=== PATIENT | female | born 1965 | race Caucasian/White ===

== ENCOUNTER 2019-06-20 20:02 | Emergency (ER) | payer SELFPAY ==
[~2019-06-20] VITALS: Ht 160 cm; Wt 87.2 kg
[~2019-06-20 20:02] MED LIST: ASP81TEC PO; CIPR250S2 PO; CYMBALTA PO; DIET25TA57 PO; DIETHYLPROPION; DULO60CA6 PO; METO25TA2 PO; METOPROLOL; OMEP20TA2 PO; PRILOSEC PO; metoprolol PO
[2019-06-20 20:47] LABS: BASOPHILS % (AUTO) 0 % (0-10); EOSINOPHILS % (AUTO) 0 % (0-10); HEMATOCRIT 42 % (35-52); HEMOGLOBIN 14.2 G/DL (11.5-16.0); LYMPHOCYTES # (AUTO) 1.4 X 10^3 (1.0-4.0); LYMPHOCYTES % (AUTO) 16 % (12-44); MEAN CORPUSCULAR HEMOGLOBIN 29 PG (25-34); MEAN CORPUSCULAR HGB CONC 34 G/DL (32-36); MEAN CORPUSCULAR VOLUME 87 FL (80-99); MEAN PLATELET VOLUME 10.2 FL (7.4-10.4); MONOCYTES # (AUTO) 0.3 X 10^3 (0.0-1.0); MONOCYTES % (AUTO) 4 % (0-12); NEUTROPHILS # (AUTO) 7.4 X 10^3 (1.8-7.8); NEUTROPHILS % (AUTO) 80 % (42-75); PLATELET COUNT 254 10^3/uL (130-400); RED CELL DISTRIBUTION WIDTH 13.8 % (10.0-14.5); WHITE BLOOD COUNT 9.3 10^3/uL (4.3-11.0)
[2019-06-20 20:52] LABS: BILIRUBIN,URINE NEGATIVE (NEGATIVE); CLARITY,URINE CLEAR; COLOR,URINE YELLOW; GLUCOSE, URINE (UA) NEGATIVE (NEGATIVE); KETONES,URINE NEGATIVE (NEGATIVE); LEUKOCYTE ESTERASE ,URINE NEGATIVE (NEGATIVE); NITRITE,URINE NEGATIVE (NEGATIVE); PROTEIN,URINE 2+ (NEGATIVE)
[2019-06-20] MEDS ORDERED: LACTATED RINGERS 1,000 ML IV ONE (20:52)
[2019-06-20] MEDS ORDERED: KETOROLAC 30 MG/ML VIAL IVP STA (20:52)
[2019-06-20] MEDS ORDERED: ONDANSETRON 4 MG/2 ML (SDV) Z0FRAN IVP ONE (21:00)
[2019-06-20 21:04] LABS: ALANINE AMINOTRANSFERASE 38 U/L (0-55); ALBUMIN 3.8 GM/DL (3.2-4.5); ALKALINE PHOSPHATASE 67 U/L (40-136); BILIRUBIN,TOTAL 0.6 MG/DL (0.1-1.0); BUN/CREATININE RATIO 15; CALCIUM 8.5 MG/DL (8.5-10.1); CARBON DIOXIDE 24 MMOL/L (21-32); CHLORIDE 107 MMOL/L (98-107); CREATININE SERUM 0.86 MG/DL (0.60-1.30); GFR ESTIMATED > 60; GLUCOSE 144 MG/DL (70-105); POTASSIUM 3.6 MMOL/L (3.6-5.0); SODIUM 143 MMOL/L (135-145); TOTAL PROTEIN 6.9 GM/DL (6.4-8.2)
[2019-06-20 21:11] LABS: BACTERIA,URINE FEW /HPF
--- NOTE | 2019-06-20 21:48 | Diagnostic Imaging Report ---
PROCEDURE: CT urinary tract, rule out kidney stone. TECHNIQUE: Multiple contiguous axial images were obtained through the abdomen and pelvis without the use of intravenous contrast. Auto Exposure Controls were utilized during the CT exam to meet ALARA standards for radiation dose reduction. INDICATION: Pain in the right flank. Vomiting. COMPARISON: None. FINDINGS: The lung bases are clear. The heart is normal in size. There is a small hiatal hernia. The liver demonstrates no focal lesion. The spleen appears normal. A small splenule is noted. The pancreas appears normal. The adrenal glands appear normal. There is severe right hydronephrosis. There is no significant hydroureter seen distally. There is moderate edema about the renal pelvis. There is a nonobstructing punctate calculus in the right kidney. The left kidney appears normal. Phleboliths are seen in the pelvis and the bladder is decompressed. The bowel loops are nondistended without evidence of obstruction. The structure is believed to represent the appendix. It appears prominent, measuring 11 mm in thickness; however, there is not significant surrounding edema. No free fluid or free air is seen. No acute osseous abnormality is seen. IMPRESSION: 1. Severe right hydronephrosis. An obstructing calculus is not seen, concerning for UPJ obstruction. There is surrounding perirenal edema. 2. Nonobstructing punctate calculus seen in the right kidney. 3. Prominent appendix. This is thought to be due to variant anatomy as there are no other findings of appendicitis, however, please correlate with clinical findings. 4. Small hiatal hernia. Dictated by: Dictated on workstation # [id number]
--- NOTE | 2019-06-20 21:54 | ED Abdominal Pain ---
General Chief Complaint: Abdominal/GI Problems Stated Complaint: R ABD PAIN,V/N Nursing Triage Note: patient c/o pain believes inher right kidney. states she was required to drink 40 ounces of water for a test she had done today and since then has had pain and nausea with 4 episodes of vomiting. Sepsis Screen: No Definite Risk Source of Information: Patient History of Present Illness Date Seen by Provider: June 20, 2019 Time Seen by Provider: 20:35 Initial Comments PT ARRIVES VIA POV FROM HOME C/O SEVERE PAIN IN RUQ AND RIGHT FLANK PAIN BEGAN AROUND 1500 WHILE LAYING IN BED C/O NAUSEA AND VOMITED X 4 DUE TO PAIN. NO DIARRHEA NO FEVER/SWEATS/CHILLS NO PROBLEMS URINATING NO CHEST PAIN NO SHORTNESS OF BREATH NO PALPITATIONS NO DIZZINESS OR SYNCOPE STATES SHE THINKS IT IS HER KIDNEY STATES SHE WAS TOLD SEVERAL YEARS AGO THAT HER RIGHT KIDNEY "DOESN'T EMPTY" AND WAS REFERRED TO UROLOGIST BUT NEVER FOLLOWED UP STATES TODAY SHE HAD A "PRE DRUG SCREENING" AND HAD TO DRINK 40 OZ OF WATER TO PRODUCE A URINE SPECIMEN AT [facility]. STATES SHE BELIEVES DRINKING ALL THAT WATER CAUSED THIS PROBLEM, SHE HAS HAD THE SAME THING HAPPEN IF SHE DRINKS TOO MUCH WATER AT ONCE. BUT HAS NOT BEEN THIS BAD BEFORE STATES SHE HAS NEVER BEEN DIAGNOSED WITH KIDNEY STONES AND HAS ONLY HAD 1 UTI. TOOK 1/2 OF AN OXYCODONE THIS AFTERNOON, BUT IT DID NOT HELP, AND THEN LATER SHE VOMITED IT UP. NO KNOWN SICK CONTACTS OR KNOWN EXPOSURE TO COVID-19, BUT PT HAS BEEN TO THE STORE MULTIPLE TIMES AND VISITED FRIENDS SEVERAL TIMES DURING THE LAST SEVERAL WEEKS, WHILE COUNTRY AND STATE HAVE BEEN UNDER MANDATED STAY AT HOME ORDERS PCP: DR. MATOS Allergies and Home Medications Allergies Coded Allergies: No Known Drug Allergies (Unverified , 07/09/10) Home Medications Aspirin 81 Mg Tabec, 81 MG PO DAILY, (Reported) Ciprofloxacin 250 Mg/5 Ml [facility]..rec, 250 MG PO BID, (Reported) take until gone Duloxetine Hcl 60 Mg Capsule., 60 MG PO HS, (Reported) Hydrocodone/Ibuprofen 1 Each Tablet, 1-2 TAB PO Q4H PRN for PAIN-MODERATE Prescribed by: MARCELLUS MERIDA on 06/20/192226 Metoprolol Tartrate 25 Mg Tablet, 25 MG PO BID, (Reported) Nitrofurantoin Monohyd/M-Cryst 100 Mg Capsule, 1 TAB PO BID Prescribed by: MARCELLUS MERIDA on 06/20/192226 Omeprazole 20 Mg Tablet.dr, 20 MG PO BID, (Reported) Ondansetron 4 Mg Tab.rapdis, 4 MG PO Q4H Prescribed by: MARCELLUS MERIDA on 06/20/192226 Tamsulosin HCl 0.4 Mg Cap, 0.4 MG PO DAILY Prescribed by: MARCELLUS MERIDA on 06/20/192226 Patient Home Medication List Home Medication List Reviewed: Yes Review of Systems Review of Systems Constitutional: no symptoms reported; No chills, No diaphoresis, No dizziness, No fever EENTM: No Symptoms Reported Respiratory: No Symptoms Reported; Denies Cough, Denies Shortness of Air Cardiovascular: No Symptoms Reported; Denies Chest Pain, Denies Edema, Denies Lightheadedness Gastrointestinal: See HPI, Abdominal Pain; Denies Constipated, Denies Diarrhea; Nausea, Vomiting Genitourinary: Denies Burning, Denies Discharge, Denies Frequency; Flank Pain; Denies Hematuria, Denies Incontinence, Denies Pain, Denies Urgency Musculoskeletal: see HPI, back pain Skin: no symptoms reported Psychiatric/Neurological: No Symptoms Reported Endocrine: No Symptoms Reported Hematologic/Lymphatic: No Symptoms Reported Past Bvthyav-Xhylrx-Sgxjtx Hx Past Med/Social Hx: Reviewed and Corrections made Patient Social History Alcohol Use: Denies Use Recreational Drug Use: No Smoking Status: Current Everyday Smoker (1/2 PPD AND CHEWS "POUCHES" ) Type Used: Cigarettes, Smokeless Tobacco Recent Foreign Travel: No Contact w/Someone Who Travel: No Recent Infectious Disease Expo: No Past Medical History Surgeries: Yes ( ; LEFT KNEE PATELLA FRACTURE REPAIR; RIGHT CARPAL TUNNEL) Section, Orthopedic Respiratory: No Cardiac: No Neurological: Yes Headaches /Migraines Reproductive Disorders: No [employer] History: Menopausal Genitourinary: Yes ("RIGHT KIDNEY DOESN'T DRAIN";R INTRARENAL STONE NOTED ON CT-NEVER PASSED AN) Kidney Stones Gastrointestinal: Yes Gastroesophageal Reflux Musculoskeletal: No Endocrine: No HEENT: No Cancer: No Psychosocial: Yes Depression Integumentary: No Blood Disorders: No Physical Exam Vital Signs Vital Signs - First Documented 06/20/19 20:22 Temp 36.1 Pulse 50 Resp 18 B/P (MAP) 152/79 (103) Pulse Ox 97 O2 Delivery Room Air Capillary Refill : Less Than 3 Seconds Height/Weight/BMI Height: '" Weight: lbs. oz. kg; 34.00 BMI Method: General Appearance: WD/WN, no apparent distress (BUT LOOKS UNCOMFORTABLE HOLDING RIGHT MID ABDOMEN AND FLANK AREA. ) Neck: normal inspection Respiratory: normal breath sounds, no respiratory distress, no accessory muscle use Cardiovascular: regular rate, rhythm, no murmur Gastrointestinal: normal bowel sounds, soft, no organomegaly, no pulsatile mass; No distended, No rebound; tenderness (RIGHT MID AND UPPER ABDOMEN AND RIGHT FLANK WITH SIGNIFICANT TENDERNESS. ); No hernia, No mass Extremities: normal inspection, no pedal edema, normal capillary refill Back: no vertebral tenderness, CVA tenderness (R) Neurologic/Psychiatric: car unloader II-XII nml as tested, no motor/sensory deficits, alert, normal mood/affect, oriented x 3 Skin: normal color, warm/dry; No rash Progress/Results/Core Measures Results/Orders Lab Results Laboratory Tests Test 06/20/19 20:33 06/20/19 20:45 Range/Units White Blood Count 9.3 4.3-11.0 10^3/uL Red Blood Count 4.87 4.35-5.85 10^6/uL Hemoglobin 14.2 11.5-16.0 G/DL Hematocrit 42 35-52 % Mean Corpuscular Volume 87 80-99 FL Mean Corpuscular Hemoglobin 29 25-34 PG Mean Corpuscular Hemoglobin Concent 34 32-36 G/DL Red Cell Distribution Width 13.8 10.0-14.5 % Platelet Count 254 130-400 10^3/uL Mean Platelet Volume 10.2 7.4-10.4 FL Neutrophils (%) (Auto) 80 H 42-75 % Lymphocytes (%) (Auto) 16 12-44 % Monocytes (%) (Auto) 4 0-12 % Eosinophils (%) (Auto) 0 0-10 % Basophils (%) (Auto) 0 0-10 % Neutrophils # (Auto) 7.4 1.8-7.8 X 10^3 Lymphocytes # (Auto) 1.4 1.0-4.0 X 10^3 Monocytes # (Auto) 0.3 0.0-1.0 X 10^3 Eosinophils # (Auto) 0.0 0.0-0.3 10^3/uL Basophils # (Auto) 0.0 0.0-0.1 10^3/uL Sodium Level 143 135-145 MMOL/L Potassium Level 3.6 3.6-5.0 MMOL/L Chloride Level 107 98-107 MMOL/L Carbon Dioxide Level 24 21-32 MMOL/L Anion Gap 12 5-14 MMOL/L Blood Urea Nitrogen 13 7-18 MG/DL Creatinine 0.86 0.60-1.30 MG/DL Estimat Glomerular Filtration Rate > 60 BUN/Creatinine Ratio 15 Glucose Level 144 H 70-105 MG/DL Calcium Level 8.5 8.5-10.1 MG/DL Corrected Calcium 8.7 8.5-10.1 MG/DL Total Bilirubin 0.6 0.1-1.0 MG/DL Aspartate Amino Transf (AST/SGOT) 32 5-34 U/L Alanine Aminotransferase (ALT/SGPT) 38 0-55 U/L Alkaline Phosphatase 67 40-136 U/L Total Protein 6.9 6.4-8.2 GM/DL Albumin 3.8 3.2-4.5 GM/DL Urine Color YELLOW Urine Clarity CLEAR Urine pH 5.0 5-9 Urine Specific [place] >=1.030 1.016-1.022 Urine Protein 2+ H NEGATIVE Urine Glucose (UA) NEGATIVE NEGATIVE Urine Ketones NEGATIVE NEGATIVE Urine Nitrite NEGATIVE NEGATIVE Urine Bilirubin NEGATIVE NEGATIVE Urine Urobilinogen 0.2 < = 1.0 MG/DL Urine Leukocyte Esterase NEGATIVE NEGATIVE Urine RBC (Auto) 1+ H NEGATIVE Urine RBC 5-10 H /HPF Urine WBC 5-10 H /HPF Urine Squamous Epithelial Cells 10-25 H /HPF Urine Crystals NONE /LPF Urine Bacteria FEW H /HPF Urine Casts NONE /LPF Urine Mucus NEGATIVE /LPF Urine Culture Indicated NO My Orders Orders - MARCELLUS MERIDA DO Ed Iv/Invasive Line Start (06/20/19 20:27) Cbc With Automated Diff (06/20/19 20:27) Comprehensive Metabolic Panel (06/20/19 20:27) Ua Culture If Indicated (06/20/19 20:27) Ct Abd/Pelvis Wo(Kidney Stone) (06/20/19 20:52) Acute Abd Series (06/20/19 20:52) Ed Iv/Invasive Line Start (06/20/19 20:52) Lactated Ringers (Lr 1000 Ml Iv Solution (06/20/19 20:52) Ketorolac Injection (Toradol Injection) (06/20/19 20:52) Ondansetron Injection (Zofran Injectio (06/20/19 21:00) Tamsulosin Capsule (Flomax Capsule) (06/21/19 18:00) Rx-Hydrocodone/Apap 5-325 Mg (Rx-Vicodin (06/20/19 22:30) Rx-Ondansetron Po (Rx-Zofran Po) (06/20/19 22:22) Rx-Nitrofurantoin [place] (Rx-Macrobid) (06/20/19 22:22) Tamsulosin Capsule (Flomax Capsule) (06/20/19 22:34) Medications Given in ED Current Medications Medications Dose Ordered Sig/Gila Route Start Time Stop Time Status Last Admin Dose Admin Acetaminophen/ Hydrocodone Bitart 1 ea Q4H PRN PO 06/20/19 22:30 06/20/19 22:55 DC 06/20/19 22:33 1 EA Lactated Ringer's 1,000 ml @ 0 mls/hr Q0M ONCE IV 06/20/19 20:52 06/20/19 20:54 DC 06/20/19 21:09 1,000 MLS/HR Ondansetron HCl 4 mg ONCE ONCE IVP 06/20/19 21:00 06/20/19 21:01 DC 06/20/19 21:09 4 MG Vital Signs/I&O 06/20/19 06/20/19 20:22 22:53 Temp 36.1 Pulse 50 53 Resp 18 14 B/P (MAP) 152/79 (103) 120/64 Pulse Ox 97 98 O2 Delivery Room Air Room Air Blood Pressure Mean: 103 Progress Progress Note : Progress Note GIVEN TORADOL AND ZOFRAN WITH SIGNIFICANT IMPROVEMENT OF SYMPTOMS Diagnostic Imaging Comments CT ABDOMEN/PELVIS--PER RADIOLOGIST REPORT AT 2153 FINDINGS: The lung bases are clear. The heart is normal in size. There is a small hiatal hernia. The liver demonstrates no focal lesion. The spleen appears normal. A small splenule is noted. The pancreas appears normal. The adrenal glands appear normal. There is severe right hydronephrosis. There is no significant hydroureter seen distally. There is moderate edema about the renal pelvis. There is a nonobstructing punctate calculus in the right kidney. The left kidney appears normal. Phleboliths are seen in the pelvis and the bladder is decompressed. The bowel loops are nondistended without evidence of obstruction. The structure is believed to represent the appendix. It appears prominent, measuring 11 mm in thickness; however, there is not significant surrounding edema. No free fluid or free air is seen. No acute osseous abnormality is seen. IMPRESSION: 1. Severe right hydronephrosis. An obstructing calculus is not seen, concerning for UPJ obstruction. There is surrounding perirenal edema. 2. Nonobstructing punctate calculus seen in the right kidney. 3. Prominent appendix. This is thought to be due to variant anatomy as there are no other findings of appendicitis, however, please correlate with clinical findings. 4. Small hiatal hernia. Reviewed: Reviewed by Me Departure Impression Primary Impression: Obstruction of right ureteropelvic junction (UPJ) Additional Impression: UTI (urinary tract infection) Disposition: 01 HOME, SELF-CARE Condition: Improved Departure-Patient Inst. Referrals: MICHOACANO MATOS MD (PCP/Family) Primary Care Physician TIANNA MILLAN MD Patient Instructions: Urinary Tract Infection, Adult (DC), Urinary Obstruction (DC) Add. Discharge Instructions: LOTS OF CLEAR LIQUIDS FOLLOW UP WITH DR. MILLAN OR UROLOGIST OF CHOICE THIS WEEK FOR FURTHER CARE All discharge instructions reviewed with patient and/or family. Voiced understanding. Scripts Hydrocodone/Ibuprofen (Hydrocodone-Ibuprofen 7.5-200) 1 Each Tablet 1-2 TAB PO Q4H PRN for PAIN-MODERATE MDD 6 TABS for 7 Days, #20 TAB Prov: MAGNOLIA,MARCELLUS K DO 06/20/19 Tamsulosin HCl (Flomax) 0.4 Mg Cap 0.4 MG PO DAILY, #10 CAP Prov: MAGNOLIA,MARCELLUS K DO 06/20/19 Ondansetron (Ondansetron Odt) 4 Mg Tab.rapdis 4 MG PO Q4H for Nausea/Vomiting, #10 TAB Prov: MAGNOLIA,MARCELLUS K DO 06/20/19 Nitrofurantoin Monohyd/M-Cryst (Macrobid 100 mg Capsule) 100 Mg Capsule 1 TAB PO BID, #20 CAP Prov: MAGNOLIA,MARCELLUS K DO 06/20/19 MAGNOLIA,MARCELLUS K DO June 20, 2019 21:54
--- NOTE | 2019-06-20 21:58 | Diagnostic Imaging Report ---
HISTORY: Kidney stone. TECHNIQUE: Frontal view of the chest. Upright and supine frontal views of the abdomen. COMPARISON: CT from the same day. FINDINGS: Lung volumes are mildly low. There is minimal opacity in the lung bases, most likely atelectasis. No pleural effusion or pneumothorax is seen. No distended loops of small bowel are seen. No definite calculi are seen in the kidneys or along the expected course of the ureters. Phleboliths are seen in the pelvis. No acute osseous abnormality is seen. IMPRESSION: 1. No acute abnormality is seen in the abdomen. 2. Bibasilar pulmonary opacities, likely atelectasis. Dictated by: Dictated on workstation # [id number]
[2019-06-20] MEDS ORDERED: RX-NITROFURANTOIN 100 MG (MACROBID) CAP PPK#2 PO STA (22:22)
[2019-06-20] MEDS ORDERED: RX-ONDANSETRON 4 MG ODT (ZOFRAN) PPK #4 PO STA (22:22)
[2019-06-20] MEDS ORDERED: HYDR-87 PO (22:27)
[2019-06-20] MEDS ORDERED: ONDA4TAB11 PO (22:27)
[2019-06-20] MEDS ORDERED: NITR-65 PO (22:27)
[2019-06-20] MEDS ORDERED: TMSL.4C PO (22:27)
[2019-06-20] MEDS ORDERED: RX-HYDROCODONE/APAP 5/325 MG #4 TAB PK PO PRN (22:30)
[2019-06-20] MEDS ORDERED: TAMSULOSIN 0.4 MG (FLOMAX) CAP PO ONE (22:34)
[2019-06-20 22:53] VITALS: BP 120/64
[2019-06-21] MEDS ORDERED: HYDR-87 PO (15:23)
[2019-06-21] MEDS ORDERED: TAMSULOSIN 0.4 MG (FLOMAX) CAP PO SCH (18:00)
== END 2019-06-20 22:55 | disposition home or self-care (01) ==
LOC: EDUNIT# 20:02 → ER 20:05
DX: N13.5 Crossing vessel and stricture of ureter without hydronephrosis (principal); N39.0 Urinary tract infection, site not specified; N13.2 Hydronephrosis with renal and ureteral calculous obstruction; K44.9 Diaphragmatic hernia without obstruction or gangrene; G43.909 Migraine, unspecified, not intractable, without status migrainosus; K21.9 Gastro-esophageal reflux disease without esophagitis; F32.9 Major depressive disorder, single episode, unspecified; F17.210 Nicotine dependence, cigarettes, uncomplicated; Z79.82 Long term (current) use of aspirin; Z79.899 Other long term (current) drug therapy
CPT/HCPCS: 36415; 74022; 74176; 80053; 81000; 85025